=== PATIENT | male | born 1995 | race Caucasian/White ===

== ENCOUNTER 2019-03-16 12:30 | Emergency (ER) | payer SELFPAY ==
[~2019-03-16] VITALS: Ht 180.3 cm; Wt 82.0 kg
[2019-03-16 13:16] VITALS: BP 115/61
[2019-03-16] MEDS ORDERED: ONDANSETRON HCL 4MG/2ML INJ IV ONE (13:30)
[2019-03-16 13:31] LABS: BASOPHILS % 0.4 % (0.0-2.0); EOSINOPHILS % 0.9 % (0.0-5.0); HEMATOCRIT. 42.1 % (42.0-52.0); HEMOGLOBIN. 14.3 g/dL (14.0-18.0); LYMPHOCYTES % 16.3 % (20.0-50.0); MEAN CORPUSCULAR HEMOGLOBIN 32.6 pg (28.0-32.0); MEAN CORPUSCULAR VOLUME 96.1 fL (80.0-94.0); MEAN PLATELET VOLUME 9.2 fl (7.4-10.4); MONOCYTES % 5.5 % (2.0-8.0); NEUTROPHILS % 76.9 % (40.0-76.0); PLATELET 172 x1000/uL (130-400); RED BLOOD CELL COUNT 4.39 mill/uL (4.7-6.1); RED CELL DISTRIBUTION WIDTH 12.4 % (11.6-14.6)
[2019-03-16 13:33] LABS: CHLORIDE 108 mEq/L (98-107)
== END 2019-03-16 15:13 | disposition home or self-care (01) ==
LOC: ER 12:30
DX: S00.01XA Abrasion of scalp, initial encounter (principal); R55 Syncope and collapse; X58.XXXA Exposure to other specified factors, initial encounter; Y93.89 Activity, other specified; Y92.9 Unspecified place or not applicable
CPT/HCPCS: 36415; 70450; 70486; 71045; 80053; 83880; 84484; 85025; 93005; 96374; 99284; J2405